=== PATIENT | male | born 1950 | race Two or more races ===

== ENCOUNTER 2022-01-14 22:37 | Inpatient (IN) | payer OTHER ==
[~2022-01-14] VITALS: Ht 165.1 cm; Wt 76.7 kg
[2022-01-14] MEDS ORDERED: BAYER CHILDREN'81 MG (23:17)
[2022-01-14] MEDS ORDERED: COZAAR25 MG (23:17)
[2022-01-14] MEDS ORDERED: LANTUS SOL100 UNIT/1 (23:17)
[2022-01-14] MEDS ORDERED: NEURONTIN800 MG (23:17)
--- NOTE | 2022-01-14 23:17 | NUR ---
SE RECIBE MASCULINO ALERTA Y ORIENTADO X 3 ESFERAS EN AMBULANCIA[facility] POR UN NSTEMI.
== END 2022-01-29 13:56 | disposition left against medical advice (07) | DRG 280 ==
LOC: ER 22:37 → MEDJ 23:56
PROVIDERS: ADMIT Internal Medicine; ATTEND Internal Medicine
PROC: B24BZZZ Ultrasonography of Heart with Aorta (ICD-10-PCS; 2022-01-14)
PROC: 4A12X4Z Monitoring of Cardiac Electrical Activity, External Approach (ICD-10-PCS; 2022-01-15)
PROC: 30233N1 Transfusion of Nonautologous Red Blood Cells into Peripheral Vein, Percutaneous Approach (ICD-10-PCS; principal; 2022-01-16)
PROC: 02HV33Z Insertion of Infusion Device into Superior Vena Cava, Percutaneous Approach (ICD-10-PCS; 2022-01-20)
PROC: 5A09357 Assistance with Respiratory Ventilation, Less than 24 Consecutive Hours, Continuous Positive Airway Pressure (ICD-10-PCS; 2022-01-20)
DX: I24.9 Acute ischemic heart disease, unspecified (principal); I21.A1 Myocardial infarction type 2; I50.33 Acute on chronic diastolic (congestive) heart failure; J96.02 Acute respiratory failure with hypercapnia; J96.01 Acute respiratory failure with hypoxia; N17.8 Other acute kidney failure; I13.0 Hypertensive heart and chronic kidney disease with heart failure and stage 1 through stage 4 chronic kidney disease, or unspecified chronic kidney disease; E87.2 Acidosis; N18.4 Chronic kidney disease, stage 4 (severe); D63.1 Anemia in chronic kidney disease; E87.6 Hypokalemia; E11.22 Type 2 diabetes mellitus with diabetic chronic kidney disease; Z79.4 Long term (current) use of insulin; I25.10 Atherosclerotic heart disease of native coronary artery without angina pectoris; L97.529 Non-pressure chronic ulcer of other part of left foot with unspecified severity